=== PATIENT | female | born 1995 | race Hispanic/Latino ===

== ENCOUNTER 2024-08-11 19:26 | Inpatient (IN) | payer SELFPAY ==
[~2024-08-11] VITALS: Ht 154.9 cm; Wt 107.0 kg
[2024-08-11 19:43] LABS: ADD UA MICROSCOPIC YES; APPEARANCE,URINE CLOUDY (CLEAR); BILIRUBIN,URINE 0.5 mg/dL (NEGATIVE); COLOR,URINE YELLOW (YELLOW); GLUCOSE, URINE (UA) NEGATIVE (NEGATIVE); KETONES,URINE 60 mg/dL (NEGATIVE); LEUKOCYTE ESTERASE ,URINE 500 Leu/uL (NEGATIVE); NITRATE,URINE NEGATIVE (NEGATIVE); OCCULT BLOOD,URINE NEGATIVE (NEGATIVE); PROTEIN,URINE 20 mg/dL (NEGATIVE)
[2024-08-11 19:47] LABS: BACTERIA,URINE RARE /HPF (None Seen); MUCUS,URINE FEW LPF (None Seen); SQUAMOUS EPITHELIAL CELL,UR FEW /HPF (0-2); YEAST,URINE BUDDING RARE /HPF (None Seen)
--- NOTE | 2024-08-11 20:14 | HMCIMG ---
US ABDOMINAL RUQ\E\LTD HISTORY: No additional history given. COMPARISON: None TECHNIQUE: Right upper quadrant abdominal ultrasound study was performed. FINDINGS: Abdominal aorta and inferior vena cava are unremarkable. The visualized portion of the pancreas is within normal limits. Liver measures 14.2 cm. Liver is echogenic consistent with liver parenchymal disease. Gallstones are seen in the gallbladder Common duct measures 5 mm. No evidence of gallbladder wall thickening is seen. Right kidney measures 9.7 x 4.1 x 5 cm. No hydronephrosis is seen of the right kidney. IMPRESSION: 1. Gallstones in the gallbladder. No ductal dilatation is seen. 2. No hydronephrosis is seen.
--- NOTE | 2024-08-11 20:28 | ERN ---
ED Note History of Present Illness Stated Complaint: C/O ABD PAIN W/N X V ONSET 1300 TODAY Chief Complaint: Abdominal Pain Time Seen by MD: 19:31 Time Seen by Midlevel: 19:33 Dictation: 28-year-old female with no past medical history coming in complaining of epigastric pain that radiates to her back started at 1:00 a.m.. Patient states she ate meat and potatoes and pain started afterwards. Patient also states she has not nausea and vomiting has had two episodes of emesis and nonbloody. LMP is 07/16/2024. Allergies: Coded Allergies: No Known Allergies (Unverified Allergy, Unknown, 08/11/24) Past Medical History Past Medical History: No Pertinent History Surgical History: None LMP: Jul 16, 2024 Review of System Dictation Constitutional: Negative for fever,chills, and weight loss Eyes: Negative for injury, pain,redness, and discharge ENT: Negative for injury,pain or swelling Cardiovascular: Negative for chest pain, palpitations, and edema Respiratory: Negative for shortness of breath, cough, and wheezing, Abdomen/GI: Complaining of epigastric pain, nausea, vomiting, no diarrhea, and no constipation Back: Negative for injury and pain : Negative for injury, bleeding and discharge MS/Extremity: Negative for injury and deformity Skin: Negative for rash, and discoloration Neuro: Negative for headache, weakness, numbness, tingling, and seizure Psych: Negative for suicide ideation, homicidal ideation, and hallucinations Review of Systems: was completed Initial Vital Sign VS Vital Signs Date Time Temp Pulse Resp B/P (MAP) Pulse Ox O2 Delivery O2 Flow Rate FiO2 08/11/24 19:31 97.9 61 20 128/74 100 Room Air Physical Exam Dictation General: awake, alert, NAD Head/Face: Normocephalic, atraumatic Eyes: PERRL, EOMI, vision at baseline ENT: oral cavity clear, TMs clear, no signs of infection Neck: Trachea midline, supple, no nuchal rigidity Cardiovascular: RRR, normal S1/S2, No MRGs, no JVD Respiratory: CTAB, no respiratory distress, No rales or wheezes Abdomen: Soft, right upper quadrant tenderness on palpation, non-distended, norm al bowel sounds, no guarding or rebound. Skin: Warm, dry, normal turgor, no rash MS/Extremity: Pulses equal, no cyanosis, neurovascular intact, FROM Neuro: COAx4, GCS 15, strength 5/5, CN 2-12 intact, normal cerebellar exam, normal gait, Psych: Normal behavior, mood, and affect normal Results (Laboratory/Radiology) Laboratory/Radiology Laboratory Tests Test 08/11/24 19:33 08/11/24 20:24 Urine Color YELLOW (YELLOW) Urine Appearance CLOUDY (CLEAR) H Urine pH 6.0 (5.0-8.0) Urine Specific [place] 1.024 (1.001-1.031) Urine Protein 20 mg/dL (NEGATIVE) H Urine Glucose (UA) NEGATIVE mg/dL (NEGATIVE) Urine Ketones 60 mg/dL (NEGATIVE) H Urine Occult Blood NEGATIVE (NEGATIVE) Urine Nitrate NEGATIVE (NEGATIVE) Urine Bilirubin 0.5 mg/dL (NEGATIVE) H Urine Urobilinogen 4.0 mg/dL (0.2-1.0) H Urine Leukocyte Esterase 500 Francisco/uL (NEGATIVE) H Urine RBC 11-25 /HPF (0-1) H Urine WBC 11-25 /HPF (0-1) H Urine Squamous Epithelial Cells FEW /HPF (0-2) Urine Bacteria RARE /HPF (None Seen) Urine Yeast RARE /HPF (None Seen) White Blood Count 15.2 K/uL (4.8-10.8) H Red Blood Count 4.72 MIL/uL (4.00-5.50) Hemoglobin 13.4 g/dL (12.0-16.0) Hematocrit 41.3 % (36-48) Mean Corpuscular Volume 87.5 fL (79-99) Mean Corpuscular Hemoglobin 28.4 pg (27.0-33.0) Mean Corpuscular Hemoglobin Concent 32.4 g/dL (32.0-36.0) Red Cell Distribution Width 13.5 % (11.0-15.5) Platelet Count 313 K/uL (130-400) Mean Platelet Volume 10.3 fL (7.5-10.5) Immature Granulocyte % (Auto) 0.5 % (0-1) Neutrophils (%) (Auto) 90.1 % (40.0-77.0) H Lymphocytes (%) (Auto) 6.3 % (21.0-51.0) L Monocytes (%) (Auto) 2.9 % (3.0-13.0) L Eosinophils (%) (Auto) 0.0 % (0.0-8.0) Basophils (%) (Auto) 0.2 % (0.0-5.0) Neutrophils # (Auto) 13.7 K/uL (1.8-7.7) H Lymphocytes # (Auto) 1.0 K/uL (1.0-4.8) Monocytes # (Auto) 0.4 K/uL (0.1-1.0) Eosinophils # (Auto) 0.00 K/uL (0.00-0.70) Basophils # (Auto) 0.03 K/uL (0.00-0.20) Absolute Immature Granulocyte (auto 0.07 K/uL (0-1) Nucleated Red Blood Cells 0.0 % (0.0-0.19) White Cell Morphology Comment See comments Sodium Level 136 mmol/L (136-145) Potassium Level 4.1 mmol/L (3.5-5.1) Chloride Level 100 mmol/L (101-111) L Carbon Dioxide Level 26 mmol/L (21-32) Blood Urea Nitrogen 14 mg/dL (7-18) Creatinine 0.7 mg/dL (0.5-1.0) Glomerular Filtration Rate Calc 121 mL/min (>90) Random Glucose 145 mg/dL (70-105) H Total Calcium 9.2 mg/dL (8.5-10.1) Total Bilirubin 2.0 mg/dL (0.2-1.0) H Direct Bilirubin 1.6 mg/dL (0.0-0.3) H Aspartate Amino Transf (AST/SGOT) 261 U/L (10-37) H Alanine Aminotransferase (ALT/SGPT) 314 U/L (12-78) H Alkaline Phosphatase 400 U/L (50-136) H Total Protein 7.8 g/dL (6.0-8.3) Albumin 4.0 g/dL (3.5-5.0) Lipase 11948 U/L (16-77) *H Human Chorionic Gonadotropin, Quant 0 mIU/mL (0-5) Labs Reviewed?: Yes Ultrasound Comment: [place] [address] [place] [id number] IMAGING REPORT Signed PATIENT: SENTHIL SIN MR#: [id number] : 1995 SEX: F AGE: 28 LOCATION: [facility] ORDER 35 STATUS: REG ER REPORT#: [id number] SERVICE 32 REASON: RUQ pain ORDERING PHYSICIAN: HENRY WING NP PROCEDURE: ABDRUQLTD - US ABDOMINAL RUQ\LTD US ABDOMINAL RUQ\E\LTD HISTORY: No additional history given. COMPARISON: None TECHNIQUE: Right upper quadrant abdominal ultrasound study was performed. FINDINGS: Abdominal aorta and inferior vena cava are unremarkable. The visualized portion of the pancreas is within normal limits. Liver measures 14.2 cm. Liver is echogenic consistent with liver parenchymal disease. Gallstones are seen in the gallbladder Common duct measures 5 mm. No evidence of gallbladder wall thickening is seen. Right kidney measures 9.7 x 4.1 x 5 cm. No hydronephrosis is seen of the right kidney. IMPRESSION: 1. Gallstones in the gallbladder. No ductal dilatation is seen. 2. No hydronephrosis is seen. DICTATED BY: ADALBERTO DOBSON MD DATE: 08/11/242008 ELECTRONICALLY SIGNED BY: ADALBERTO DOBSON MD DATE: 08/11/242013 ED Course ED Course Orders Procedure Category Date Status Time Cbc With Differential LAB 08/11/24 Complete 19:33 Basic Metabolic Panel LAB 08/11/24 Complete 19:33 Lipase LAB 08/11/24 Complete 19:33 Hepatic Function Panel LAB 08/11/24 Complete 19:33 Hcg,Quantitative LAB 08/11/24 Complete 19:33 Urinalysis Profile LAB 08/11/24 Complete 19:33 Us Abdominal Ruq\Ltd US 08/11/24 Resulted 19:33 0.9%Nacl 1000ml (Ns PHA 08/11/24 Complete 1000ml) 19:33 Ondansetron 4mg Inj PHA 08/11/24 Complete (Zofran 4mg Inj) 20:00 Famotidine 20mg Vial PHA 08/11/24 Complete (Pepcid 20mg Vial) 20:00 Morphine 2mg Syg PHA 08/11/24 Complete (Morphine 2mg Syg) 20:00 Culture Urine MIGUEL 08/11/24 In Process 19:44 Ceftriaxone 1g Vial PHA 08/11/24 Complete (Rocephine 1g Inj) 20:25 General Surgery CONPHYSVC 08/11/24 Transmitted Consult 21:17 Admit Orders ADM 08/11/24 Transmitted 21:43 Current Medications Medications (Trade) Dose Ordered Sig/Joshua Route PRN Reason Start Time Stop Time Status Last Admin Dose Admin Ceftriaxone Sodium (ROCEphine 1G INJ) 1 gm ONCE STAT IVPB 08/11/24 20:25 08/11/24 20:28 DC 08/11/24 21:37 Famotidine (Pepcid 20mg Vial) 20 mg ONCE ONCE IV 08/11/24 20:00 08/11/24 20:01 DC 08/11/24 21:39 Morphine Sulfate (morPHINE 2MG SYG) 2 mg ONCE ONCE IVP 08/11/24 20:00 08/11/24 20:01 DC 08/11/24 21:38 Ondansetron HCl (zoFRAN 4MG INJ) 4 mg ONCE ONCE IVP 08/11/24 20:00 08/11/24 20:01 DC 08/11/24 21:37 Sodium Chloride 1,000 ml @ 1,000 mls/hr Q1H STAT IV 08/11/24 19:33 08/11/24 20:32 DC 08/11/24 21:37 Vital Signs Date Time Temp Pulse Resp B/P (MAP) Pulse Ox O2 Delivery O2 Flow Rate FiO2 08/11/24 19:31 97.9 61 20 128/74 100 Room Air Medical Decision Making MDM MDM: 28-year-old female with no past medical history coming in complaining of epigastric pain that radiates to her back started at 1:00 a.m.. Patient states she ate meat and potatoes and pain started afterwards. Patient also states she has not nausea and vomiting has had two episodes of emesis and nonbloody. LMP is 07/16/2024. CBC shows a leukocytosis, no anemia, no thrombocytopenia. Chemistry shows transaminitis with a elevated T bili. Normal lipase. Ultrasound shows gallbladder stones but no gallbladder wall thickening. Patient will be admitted for biliary colic, transaminitis, urinary tract infection, intractable abdominal pain. Spoke to Adrienne LINER HELPER for hospitalist. Okay to admit patient and put a routine consult for General surgery. Differential diagnosis: Gastritis, gastroenteritis, pancreatitis, cholecystitis Rationale: Tests considered and ordered secondary to shared decision making include: Previous outside records reviewed: Old ER visits. Risk of complication and/or morbidity or mortality of patient management: None Medications-Per medication reconciliation Need for hospitalization: Patient does not meet criteria for hospitalization. Need for emergency major/minor surgery: No There are no social concerns with this patient. Prescription drug management Prescriptions will include symptomatic care Patient's prior external medical records from other ER visits were reviewed by me as indicated. Prior testing and results from previous visits were reviewed. Prior tests were taken into account with medical decision making and resource utilization, independent historian/historians were used to obtain complete medical history. I independently interpreted the test that were performed, results were reviewed by me and considered findings on radiology if ordered. Medical management and examination interpretation discussions were had by me with other qualified healthcare professionals as indicated for the patient's care. DX & DISP Disposition: Inpatient Decision to Admit Date: Aug 11, 2024 Decision to Admit Time: 21:45 Departure Impression: Primary Impression: Urinary tract infection Additional Impressions: Cholelithiasis, Biliary colic, Leukocytosis, Transaminitis, Pancreatitis Condition: Stable Referrals: SELF,REFERRAL (PCP) I have reviewed the case, and I agree with, Diagnosis and Plan I PERFORMED A SUBSTANTIVE PORTION OF THE VISIT. I HAVE REVIEWED AND PERSONALLY MADE AND APPROVE THE MANAGEMENT PLAN THAT IS DOCUMENTED IN THE NOTE BY MYSELF OR THE AP P. I ACKNOWLEDGE FULL RESPONSIBILITY FOR THE PATIENT'S MANAGEMENT PLAN. HENRY WING NP Aug 11, 2024 20:28
[2024-08-11 20:40] LABS: BASOPHILS # (AUTO) 0.03 K/uL (0.00-0.20); BASOPHILS % (AUTO) 0.2 % (0.0-5.0); HEMATOCRIT 41.3 % (36-48); IMMATURE GRANULOCYTE ABSOLUTE 0.07 K/uL (0-1); LYMPHOCYTES % (AUTO) 6.3 % (21.0-51.0); MEAN CORPUSCULAR HEMOGLOBIN 28.4 pg (27.0-33.0); MEAN CORPUSCULAR HGB CONC 32.4 g/dL (32.0-36.0); MEAN CORPUSCULAR VOLUME 87.5 fL (79-99); MONOCYTES # (AUTO) 0.4 K/uL (0.1-1.0); MONOCYTES % (AUTO) 2.9 % (3.0-13.0); NEUTROPHILS # (AUTO) 13.7 K/uL (1.8-7.7); NEUTROPHILS % (AUTO) 90.1 % (40.0-77.0); PLATELET COUNT (AUTO) 313 K/uL (130-400); RED BLOOD CELL COUNT(AUTO) 4.72 MIL/uL (4.00-5.50); RED CELL DISTRIBUTION WIDTH 13.5 % (11.0-15.5); WHITE BLOOD COUNT (AUTO) 15.2 K/uL (4.8-10.8)
[2024-08-11 20:57] LABS: CREATININE 0.7 mg/dL (0.5-1.0); POTASSIUM 4.1 mmol/L (3.5-5.1)
[2024-08-11 21:08] LABS: BILIRUBIN,DIRECT 1.6 mg/dL (0.0-0.3); TOTAL PROTEIN, SERUM 7.8 g/dL (6.0-8.3)
[2024-08-11] MEDS: 0.9%NACL 1000ML 1,000 ML IV STA (21:37)
[2024-08-11] MEDS: cefTRIAXone 1G VIAL IVPB STA (21:37)
[2024-08-11] MEDS: ondanSETRON 4MG INJ IVP ONE (21:37)
[2024-08-11] MEDS: morPHINE 2 MG SYG IVP ONE (21:38)
[2024-08-11] MEDS: FAMOTIDINE 20MG VIAL IV ONE (21:39)
--- NOTE | 2024-08-11 22:28 | HP ---
[facility] HISTORY [facility] PHYSICAL Date of Service: Aug 11, 2024 Time of Service: 22:28 PCP: Self-referral HISTORY OF PRESENT ILLNESS: This is a 28-year-old female with no past medical and surgical history who comes into the ED for complaints of epigastric pain which radiates to her back which started around 1:00 p.m. today associated with nausea and vomiting x5 episodes. Patient states he had meat and potatoes around 10:30 a.m. today.Patient described pain as sharp so she decided to come to the Ed for evaluation. P atient states her last bowel movement is around 8:00 a.m. a.m. today eight was normal. Seen and examined patient in the ER awake alert and coherent appears comfortable patient reports she feels much better luminal pain 2/10 pain level at this time. Patient denies fever, chills, cough, chest pain, palpitation, shortness for breath and diarrhea. Vital signs temperature 97.9, heart rate 61, blood pressure 128/74 saturation 100% on room air. Labs: WBC 15 with negative left shift of neutrophils 90, hemoglobin 13, hematocrit 41 platelet count 313. Chloride 100, glucose 145, total bilirubin 2,Direct bilirubin 1.6, AST 261, ALT 314, alkaline phosphatase 400. Lipase 24114, triglyceride 49 . Urinalysis consistent with urinary tract infection. Abdominal ultrasound result revealed gallstone in the gallbladder. No ductal dilatation is seen. No hydronephrosis is seen. While in the ER patient received 1 L NS bolus, Zofran 4 mg IV, famotidine 20 mg IV, morphine 2 mg IV and Rocephin 1 g IV. We will admit patient for further medical management. REVIEW OF SYSTEMS CONSTITUTIONAL: Denies fevers, chills, or night sweats. No unintentional weight loss reported. NEUROLOGICAL: Denies headache, amaurosis fugax, motor weakness, sensory deficit, vertigo/spinning sensation, gait abnormalities, or tremors. ENT: No hearing loss, otalgia, otorrhea, rhinitis, rhinorrhea, hoarseness, or sore throat. CARDIOVASCULAR: Denies any exertional angina, dyspnea on exertion, orthopnea, paroxysmal nocturnal dyspnea, palpitations, life-threatening arrhythmias, claudication. PULMONARY: Denies any shortness of breath, cough, phlegm/sputum, hemoptysis, pleuritic chest pain. SLEEP: Denies morning headaches, daytime somnolence or napping. Denies difficu lty falling asleep, staying asleep, waking from sleep. Denies knowledge of snoring. GASTROINTESTINAL: Epigastric pain, nausea and vomiting Denies any type of dysphagia to either liquids or solids. Denies pyrosis, early satiety, diarrhea, constipation, or changes in stool consistency or caliber. Denies coffee-ground emesis, hematemesis, hematochezia, or melanotic stools. GENITOURINARY: Denies frequency, urgency, nocturia, hematuria or incontinence (Storage/Irritative symptoms.) Low urinary stream, straining to void, urinary intermittency or hesitancy, splitting of the voiding stream, terminal dribbling. ENDOCRINOLOGIC: Denies polyuria, polydipsia, polyphagia or heat/cold intolerances. HEMATOLOGIC: Denies thrombophilia/previous clots, or coagulopathy/bleeding disorders. ONCOLOGIC: Denies personal history of malignancy. DERMATOLOGIC: Denies rashes or pruritus. PSYCHIATRIC: Denies any suicidal or homicidal ideation. Denies hallucinations. PAST MEDICAL HISTORY: [ Patient denies ] PAST SURGICAL HISTORY: [ Patient denies ] PAST SOCIAL HISTORY: [ Patient lives with parents. Patient denies alcohol tobacco and recreational drug use ] FAMILY HISTORY: [ Noncontributory ] Coded Allergies: No Known Allergies (Unverified Allergy, Unknown, 08/11/24) PHYSICAL EXAM GENERAL APPEARANCE: The patient is awake, alert, and oriented, in no acute cardiopulmonary distress. NEUROLOGICAL: Cranial nerves II-XII grossly intact. Motor is 5/5 in bilateral upper and lower extremities proximal to distal. No sensory deficits. HEENT: Face is symmetric. Pupils are equal and reactive. Extraocular movements are intact. NECK: Supple. No JVD. No thyromegaly. No submental, submandibular, pre- /postauricular, occipital or supraclavicular lymphadenopathy. CHEST: Normal chest expansion. No Telemetry. LUNGS: Absence of any rales, rhonchi or any wheezing. CARDIOVASCULAR: Regular. S1 and S2 normal. No appreciable rubs, murmurs or gallops. ABDOMEN: Soft, nontender, and nondistended. There is no rebound, voluntary guarding, or rigidity. : Deferred. No Parker. EXTREMITIES: Non-edematous and not cyanotic. No clubbing. Good capillary refill. SKIN: No skin breakdown. Vital Sign (Last 24 Hours) 08/11/24 19:31 Temp 97.9 Pulse 61 Resp 20 B/P (MAP) 128/74 Pulse Ox 100 O2 Delivery Room Air LABS: Laboratory: Test 08/11/24 20:24 08/11/24 19:33 Range/Units White Blood Count 15.2 H 4.8-10.8 K/uL Red Blood Count 4.72 4.00-5.50 MIL/uL Hemoglobin 13.4 12.0-16.0 g/dL Hematocrit 41.3 36-48 % Mean Corpuscular Volume 87.5 79-99 fL Mean Corpuscular Hemoglobin 28.4 27.0-33.0 pg Mean Corpuscular Hemoglobin Concent 32.4 32.0-36.0 g/dL Red Cell Distribution Width 13.5 11.0-15.5 % Platelet Count 313 130-400 K/uL Mean Platelet Volume 10.3 7.5-10.5 fL Immature Granulocyte % (Auto) 0.5 0-1 % Neutrophils (%) (Auto) 90.1 H 40.0-77.0 % Lymphocytes (%) (Auto) 6.3 L 21.0-51.0 % Monocytes (%) (Auto) 2.9 L 3.0-13.0 % Eosinophils (%) (Auto) 0.0 0.0-8.0 % Basophils (%) (Auto) 0.2 0.0-5.0 % Neutrophils # (Auto) 13.7 H 1.8-7.7 K/uL Lymphocytes # (Auto) 1.0 1.0-4.8 K/uL Monocytes # (Auto) 0.4 0.1-1.0 K/uL Eosinophils # (Auto) 0.00 0.00-0.70 K/uL Basophils # (Auto) 0.03 0.00-0.20 K/uL Absolute Immature Granulocyte (auto 0.07 0-1 K/uL Nucleated Red Blood Cells 0.0 0.0-0.19 % White Cell Morphology Comment See comments Sodium Level 136 136-145 mmol/L Potassium Level 4.1 3.5-5.1 mmol/L Chloride Level 100 L 101-111 mmol/L Carbon Dioxide Level 26 21-32 mmol/L Blood Urea Nitrogen 14 7-18 mg/dL Creatinine 0.7 0.5-1.0 mg/dL Glomerular Filtration Rate Calc 121 >90 mL/min Random Glucose 145 H 70-105 mg/dL Total Calcium 9.2 8.5-10.1 mg/dL Total Bilirubin 2.0 H 0.2-1.0 mg/dL Direct Bilirubin 1.6 H 0.0-0.3 mg/dL Aspartate Amino Transf (AST/SGOT) 261 H 10-37 U/L Alanine Aminotransferase (ALT/SGPT) 314 H 12-78 U/L Alkaline Phosphatase 400 H 50-136 U/L Total Protein 7.8 6.0-8.3 g/dL Albumin 4.0 3.5-5.0 g/dL Lipase 85181 *H 16-77 U/L Human Chorionic Gonadotropin, Quant 0 0-5 mIU/mL Urine Color YELLOW YELLOW Urine Appearance CLOUDY H CLEAR Urine pH 6.0 5.0-8.0 Urine Specific [place] 1.024 1.001-1.031 Urine Protein 20 H NEGATIVE mg/dL Urine Glucose (UA) NEGATIVE NEGATIVE mg/dL Urine Ketones 60 H NEGATIVE mg/dL Urine Occult Blood NEGATIVE NEGATIVE Urine Nitrate NEGATIVE NEGATIVE Urine Bilirubin 0.5 H NEGATIVE mg/dL Urine Urobilinogen 4.0 H 0.2-1.0 mg/dL Urine Leukocyte Esterase 500 H NEGATIVE [place]/uL Urine RBC 11-25 H 0-1 /HPF Urine WBC 11-25 H 0-1 /HPF Urine Squamous Epithelial Cells FEW 0-2 /HPF Urine Bacteria RARE None Seen /HPF Urine Yeast RARE None Seen /HPF Current Medications Medications (Trade) Dose Ordered Sig/Joshua Route PRN Reason Start Time Stop Time Status Last Admin Dose Admin Ceftriaxone Sodium (ROCEphine 1G INJ) 1 gm ONCE STAT IVPB 08/11/24 20:25 08/11/24 20:28 DC 08/11/24 21:37 1 GM Sodium Chloride 1,000 ml @ 1,000 mls/hr Q1H STAT IV 08/11/24 19:33 08/11/24 20:32 DC 08/11/24 21:37 1,000 MLS/HR DIAGNOSTICS / RADIOLOGY: [ ] ASSESSMENT: Acute pancreatitis POA Transaminitis POA Acute urinary tract infection POA Acute leukocytosis POA Biliary colic POA Cholelithiasis POA Morbid obesity POA PLAN: We will admit patient in medical surgical floor We will keep patient nothing by mouth We will start NS @ 100 ml / hr and re evaluate We will start patient on Rocephin 1 g IV b.i.d. for empiric coverage We will start on Protonix 40 mg IV daily for GI prophylaxis We will replace electrolytes as needed per protocol We will add prn medication for fever,pain,cough , nausea and vomiting We will request labs in am We will seek general surgery consultation Further orders to follow depending on above results Case discussed with attending physician and came up with above treatment and plan of care. ADVANCED CARE PLANNING 1. Which of the following were discussed? Hospice Care - No Therapeutic options - Yes Advance Directives - No Other discussions - 2. Discussed with who? Patient 3. Voluntary nature of this service was explained to the patient? Yes 4. Amount of time spent - _22 5. Reviewed by Physician? (if this service was performed by NPP) Yes Patient seen and examined by me. Agree with note by AIRBRUSH ARTIST PHOTOGRAPHY SEE ADDITIONAL ORDERS PER CHART DISCUSSED WITH NURSING STAFF EMILY DICKEY PROBATION WORKER Aug 11, 2024 22:28
[2024-08-11] MEDS ORDERED: ondanSETRON 4MG INJ IV PRN (23:00)
[2024-08-11] MEDS ORDERED: morPHINE 2 MG SYG IVP PRN (23:00)
--- NOTE | 2024-08-11 23:34 | NUR ---
[place] [facility] [place]
[2024-08-11] MEDS: 0.9%NACL 1000ML 1,000 ML IV SCH (23:56)
[2024-08-12 00:05] VITALS: BP 119/62; PULSE 80; RESP 18; TEMP 98.3
--- NOTE | 2024-08-12 00:17 | NUR ---
REPORT GIVEN TO NURSE KING.
[2024-08-12 00:30] VITALS: BP 143/72; PULSE 76; RESP 16; TEMP 97.6
[2024-08-12 04:00] VITALS: BP 126/71; PULSE 85; RESP 17; TEMP 98.3
[2024-08-12 05:39] LABS: BASOPHILS # (AUTO) 0.02 K/uL (0.00-0.20); BASOPHILS % (AUTO) 0.2 % (0.0-5.0); EOSINOPHILS # (AUTO) 0.09 K/uL (0.00-0.70); EOSINOPHILS % (AUTO) 0.8 % (0.0-8.0); HEMATOCRIT 35.5 % (36-48); IMMATURE GRANULOCYTE ABSOLUTE 0.05 K/uL (0-1); LYMPHOCYTES % (AUTO) 17.3 % (21.0-51.0); MEAN CORPUSCULAR HEMOGLOBIN 28.3 pg (27.0-33.0); MEAN CORPUSCULAR HGB CONC 32.4 g/dL (32.0-36.0); MEAN CORPUSCULAR VOLUME 87.4 fL (79-99); MONOCYTES # (AUTO) 0.7 K/uL (0.1-1.0); MONOCYTES % (AUTO) 5.7 % (3.0-13.0); NEUTROPHILS # (AUTO) 8.8 K/uL (1.8-7.7); NEUTROPHILS % (AUTO) 75.6 % (40.0-77.0); PLATELET COUNT (AUTO) 283 K/uL (130-400); RED BLOOD CELL COUNT(AUTO) 4.06 MIL/uL (4.00-5.50); RED CELL DISTRIBUTION WIDTH 13.7 % (11.0-15.5); WHITE BLOOD COUNT (AUTO) 11.7 K/uL (4.8-10.8)
[2024-08-12 05:56] LABS: HEMOGLOBIN A1C 5.4 % (4.0-6.0)
[2024-08-12 06:03] LABS: BILIRUBIN,DIRECT 0.3 mg/dL (0.0-0.3); BILIRUBIN,TOTAL 0.7 mg/dL (0.2-1.0); CREATININE 0.6 mg/dL (0.5-1.0); MAGNESIUM 1.9 mg/dL (1.80-2.40); POTASSIUM 3.8 mmol/L (3.5-5.1); TOTAL PROTEIN, SERUM 6.6 g/dL (6.0-8.3)
[2024-08-12] MEDS: cefTRIAXone 1G VIAL IVPB SCH (08:06)
[2024-08-12] MEDS: PANTOPrazole 40 MG/VIAL IVP SCH (08:06)
[2024-08-12 08:28] VITALS: O2SAT 99
[2024-08-12] MEDS ORDERED: cefTRIAXone 1G VIAL 1 GM in 0.9%NACL 50ML 50 ML IV SCH (09:00)
[2024-08-12 09:32] LABS: ERYTHROCYTE SEDIMENTATION RATE 25 MM/HR (0-20)
--- NOTE | 2024-08-12 10:15 | NUR ---
PATIENT TAKEN BY RADIOLOGY FOR PROCEDURE. ALERT AND ORIENTED X4. CONSENT SIGNED.
--- NOTE | 2024-08-12 11:06 | NUR ---
PATIENT RETURNED FROM [facility]. RECONNECTED TO IV FLUIDS.
[2024-08-12] MEDS: MAGNESIUM 2GM PREMIX 50ML 50 ML IV PRN (11:08)
--- NOTE | 2024-08-12 11:20 | NUR ---
[facility] CM MET WITH PT AND MOTHER THIS MORNING, INITIAL ASSESSMENT DONE. PATIENT IS INDEPENDENT PRIOR TO ADMISSION, LIVES AT HOME WITH HER PARENTS. DENIES ANY EQUIPMENT/SERVICES. FEELS SAFE TO GO BACK HOME, STILL DRIVE, PARENTS ABLE TO ASSIST WITH TRANSPORTATION AND NEEDS NECESSARY. PT IS A SELF PAY, CURRENTLY DOES NOT SEE A PCP PRIOR TO ADMISSION, GIVEN COMMUNITY RESOURCES AND LOW COST MED PLANS, NAN FOLLOWING PATIENT. DCP HOME ONCE STABLE. CM TO CONTINUE TO FOLLOW UP. Addendum: 08/12/24 at 1121 by ADIA KENDALL LVN CM Amended: Links added.
--- NOTE | 2024-08-12 11:56 | HMCIMG ---
MRCP(ABDWWO)CHOLANGIOPANCREATO HISTORY: Gallstone pancreatitis COMPARISON: None TECHNIQUE: MRI of the abdomen was performed utilizing multiple pulse sequences in axial, coronal and sagittal planes. Patient was given 20 cc of Clariscan through intravenous route. MRCP was obtained. FINDINGS: No pleural effusion is seen bilaterally. Liver measures 14 cm. Gallstones are seen in the gallbladder. Common duct is not dilated measuring 3 mm. Pancreas is prominent with pancreatic fat stranding suspicious for acute pancreatitis in the proper clinical setting. Lipase correlation may be helpful. No mass lesion or abnormal enhancement is seen. Both kidneys are seen without hydronephrosis. IMPRESSION: 1. Gallstones without ductal dilatation. Prominent pancreas with peripancreatic fat stranding suspicious for acute pancreatitis in the proper clinical setting. Common duct is not dilated. No MR evidence of common duct stone is seen.
--- NOTE | 2024-08-12 13:44 | PN ---
[facility] PROGRESS NOTE Date of Service: Aug 12, 2024 Time of Service: 13:37 SUBJECTIVE: 08/12 patient seen at bedside, no acute events overnight. She reports improvement in her symptoms, epigastric pain has improved significantly. Upon reviewing the imaging there does not appear to be any evidence of choledocholithiasis causing acute pancreatitis. Common bile duct was of normal size, MRCP was ordered this morning and did not show any evidence of retained stones in the common bile duct. There are stones noted in the gallbladder and there is peripancreatic stranding consistent with acute pancreatitis. Patient's triglycerides are normal, she denies any alcohol use and does not take any medications that would precipitate acute pancreatitis. We will continue with IV fluids, patient already stating she is hungry, we will start a clear liquid diet and advance as tolerated. General surgery recommendations pending, we will follow up. REVIEW OF SYSTEMS 12 point review of systems negative unless noted in HPI PHYSICAL EXAM GENERAL APPEARANCE: The patient is awake, alert, and oriented, in no acute cardiopulmonary distress. NEUROLOGICAL: Cranial nerves II-XII grossly intact. Motor is 5/5 in bilateral upper and lower extremities proximal to distal. No sensory deficits. HEENT: Face is symmetric. Pupils are equal and reactive. Extraocular movements are intact. NECK: Supple. No JVD. No thyromegaly. No submental, submandibular, pre- /postauricular, occipital or supraclavicular lymphadenopathy. CHEST: Normal chest expansion. No Telemetry. LUNGS: Absence of any rales, rhonchi or any wheezing. CARDIOVASCULAR: Regular. S1 and S2 normal. No appreciable rubs, murmurs or gallops. ABDOMEN: Soft, nontender, and nondistended. There is no rebound, voluntary guarding, or rigidity. : Deferred. No Parker. EXTREMITIES: Non-edematous and not cyanotic. No clubbing. Good capillary refill. SKIN: No skin breakdown. Vital Signs (last 8hr) Date Time Temp Pulse Resp B/P (MAP) Pulse Ox O2 Delivery O2 Flow Rate FiO2 08/12/24 08:28 99 Room Air* 0 21 LABS: Laboratory: Test 08/12/24 05:21 08/11/24 20:24 08/11/24 19:33 Range/Units White Blood Count 11.7 H 4.8-10.8 K/uL Red Blood Count 4.06 4.00-5.50 MIL/uL Hemoglobin 11.5 L 12.0-16.0 g/dL Hematocrit 35.5 L 36-48 % Mean Corpuscular Volume 87.4 79-99 fL Mean Corpuscular Hemoglobin 28.3 27.0-33.0 pg Mean Corpuscular Hemoglobin Concent 32.4 32.0-36.0 g/dL Red Cell Distribution Width 13.7 11.0-15.5 % Platelet Count 283 130-400 K/uL Mean Platelet Volume 10.3 7.5-10.5 fL Immature Granulocyte % (Auto) 0.4 0-1 % Neutrophils (%) (Auto) 75.6 40.0-77.0 % Lymphocytes (%) (Auto) 17.3 L 21.0-51.0 % Monocytes (%) (Auto) 5.7 3.0-13.0 % Eosinophils (%) (Auto) 0.8 0.0-8.0 % Basophils (%) (Auto) 0.2 0.0-5.0 % Neutrophils # (Auto) 8.8 H 1.8-7.7 K/uL Lymphocytes # (Auto) 2.0 1.0-4.8 K/uL Monocytes # (Auto) 0.7 0.1-1.0 K/uL Eosinophils # (Auto) 0.09 0.00-0.70 K/uL Basophils # (Auto) 0.02 0.00-0.20 K/uL Absolute Immature Granulocyte (auto 0.05 0-1 K/uL Nucleated Red Blood Cells 0.0 0.0-0.19 % Erythrocyte Sedimentation Rate 25 H 0-20 MM/HR Sodium Level 137 136-145 mmol/L Potassium Level 3.8 3.5-5.1 mmol/L Chloride Level 105 101-111 mmol/L Carbon Dioxide Level 25 21-32 mmol/L Blood Urea Nitrogen 12 7-18 mg/dL Creatinine 0.6 0.5-1.0 mg/dL Glomerular Filtration Rate Calc 126 >90 mL/min Random Glucose 99 70-105 mg/dL Hemoglobin A1c 5.4 4.0-6.0 % Estimated Average Glucose (eAG) 108 70-126 mg/dL Total Calcium 8.1 L 8.5-10.1 mg/dL Magnesium Level 1.90 1.80-2.40 mg/dL Total Bilirubin 0.7 # 0.2-1.0 mg/dL Direct Bilirubin 0.3 # 0.0-0.3 mg/dL Aspartate Amino Transf (AST/SGOT) 201 H 10-37 U/L Alanine Aminotransferase (ALT/SGPT) 282 H 12-78 U/L Alkaline Phosphatase 300 H 50-136 U/L Total Protein 6.6 6.0-8.3 g/dL Albumin 3.0 #L 3.5-5.0 g/dL Triglycerides Level 46 30-200 mg/dL Cholesterol Level 116 <200 mg/dL LDL Cholesterol 51 0-99 mg/dL HDL Cholesterol 58 35-85 mg/dL Amylase Level 1682 *H 25-115 U/L Lipase 3035 *H 16-77 U/L White Cell Morphology Comment See comments Human Chorionic Gonadotropin, Quant 0 0-5 mIU/mL Urine Color YELLOW YELLOW Urine Appearance CLOUDY H CLEAR Urine pH 6.0 5.0-8.0 Urine Specific [place] 1.024 1.001-1.031 Urine Protein 20 H NEGATIVE mg/dL Urine Glucose (UA) NEGATIVE NEGATIVE mg/dL Urine Ketones 60 H NEGATIVE mg/dL Urine Occult Blood NEGATIVE NEGATIVE Urine Nitrate NEGATIVE NEGATIVE Urine Bilirubin 0.5 H NEGATIVE mg/dL Urine Urobilinogen 4.0 H 0.2-1.0 mg/dL Urine Leukocyte Esterase 500 H NEGATIVE [place]/uL Urine RBC 11-25 H 0-1 /HPF Urine WBC 11-25 H 0-1 /HPF Urine Squamous Epithelial Cells FEW 0-2 /HPF Urine Bacteria RARE None Seen /HPF Urine Yeast RARE None Seen /HPF Current Medications Medications (Trade) Dose Ordered Sig/Joshua Route PRN Reason Start Time Stop Time Status Last Admin Dose Admin Ceftriaxone Sodium 1 gm/ Sodium Chloride 50 ml @ 100 mls/hr BID IV 08/12/24 09:00 08/11/24 23:12 DC Ceftriaxone Sodium (ROCEphine 1G INJ) 1 gm BID IVPB 08/12/24 09:00 08/22/24 08:59 08/12/24 08:06 1 GM Ceftriaxone Sodium (ROCEphine 1G INJ) 1 gm ONCE STAT IVPB 08/11/24 20:25 08/11/24 20:28 DC 08/11/24 21:37 1 GM Magnesium Sulfate 50 ml @ 0 mls/hr PROTOCOL PRN IV OTHER [SEE ORDER COMMENTS] 08/11/24 23:00 09/10/24 22:59 08/12/24 11:08 25 MLS/HR Morphine Sulfate (morPHINE 2MG SYG) 2 mg Q4H PRN IVP SEVERE PAIN (7-10) 08/11/24 23:00 08/18/24 22:59 Ondansetron HCl (zoFRAN 4MG INJ) 4 mg Q6H PRN IV NAUSEA/VOMITING 08/11/24 23:00 09/10/24 22:59 Pantoprazole Sodium (PROTonix 40MG INJ) 40 mg DAILY IVP 08/12/24 09:00 09/11/24 08:59 08/12/24 08:06 40 MG Potassium Chloride 100 ml @ 50 mls/hr AD PRN IV POTASSIUM PROTOCOL 08/11/24 23:00 09/10/24 22:59 Sodium Chloride 1,000 ml @ 175 mls/hr Q5H43M IV 08/11/24 23:00 09/10/24 22:59 08/11/24 23:56 100 MLS/HR Sodium Chloride 1,000 ml @ 1,000 mls/hr Q1H STAT IV 08/11/24 19:33 08/11/24 20:32 DC 08/11/24 21:37 1,000 MLS/HR DIAGNOSTICS / RADIOLOGY: [ ] ASSESSMENT: Acute pancreatitis POA Transaminitis POA Acute urinary tract infection POA Acute leukocytosis POA Biliary colic POA Cholelithiasis POA Morbid obesity POA PLAN: Continue med/surg Start clear liquid diet, advance as tolerated Increase NS to 175 cc/hr Continue pain management Chest xray tomorrow am Discontinue antibiotics, not indicated at this time Continue Protonix 40 mg IV daily for GI prophylaxis General surgery consulted, appreciate recommendations Further orders to follow depending on above results Case discussed with attending physician and came up with above treatment and plan of care. ABRAM SAUCEDO MD Aug 12, 2024 13:44
--- NOTE | 2024-08-12 15:36 | CONS ---
CONSULT NOTE: Consulting physician: Dr Man Consulting service: General surgery Reason for consultation: Gallstone pancreatitis History of present illness: This 28-year-old female with no significant medical history has been consulted to surgery after presenting to the hospital with the abdominal pain in the epigastric region radiating to her back that began at 1:00 p.m.. Patient with a episodes of emesis noted. Patient reports fatty meal before presentation to the hospital. On presentation patient [place] [id number]. Lipase now less than 4000. Patient's abdominal pain has resolved patient currently NPO. Imaging performed due to concerns of elevated LFTs ruling out choledocholithiasis on MRCP. Patient on IV fluids and NPO. Patient's mother at bedside Medical history: None reported Surgical history: None reported Review of systems: General: No Fever, No Chills, No Night Sweats, No Fatigue, No Malaise, No Appetite, No Other HEENT: No Head Aches, No Visual Changes, No Eye Pain, No Ear Pain, No Dysphasia, No Sinus Congestion, No Post Nasal Drip, No Sore Throat, No Other Pulmonary: No Dyspnea, No Cough, No Pleuritic Chest Pain, No Other Cardiovascular: No: Chest Pain, Palpitations, Orthopnea, Paroxysmal No Dyspnea, Edema, Lt Headedness, Other Gastrointestinal: No: Nausea, Vomiting, Diarrhea, Constipation, Melena, Hematochezia, Other Genitourinary: No Dysuria, No Frequency, No Incontinence, No Hematuria, No Retention, No Other Musculoskeletal: No: other, neck pain, shoulder pain, arm pain, back pain, hand pain, leg pain, foot pain Skin: No Urticaria, No Rash, No Other Neurological: No: Weakness, Numbness, Incoordination, Change in speech, Confusion, Seizures, Other Physical exam: General: Awake alert and oriented Heart: Regular rate and rhythm} Lungs: Clear to auscultation no distress Abdomen: [Soft, nontender, nondistended resolving abdominal pain Assessment: This is a 28-year-old female with concerns of possible gallstone pancreatitis Plan: At this point in time we will trend lipase Patient to remain NPO Patient will likely need cholecystectomy this hospitalization once pancreatitis has resolved Surgical team to follow patient closely Nursing to report any further acute events Continue with current pain management RISSA KENDALL Jr. Aug 12, 2024 15:36
[2024-08-12] MEDS ORDERED: GADOTERATE MEGLUMINE 10 MMOL/20 ML VIAL IV ONE (16:08)
[2024-08-12] MEDS: PoTASSium chloRIDE 20MEQ/100ML 100 ML IV PRN (17:22)
[2024-08-12 20:00] VITALS: BP 106/56; PULSE 87; RESP 17; TEMP 98.4; O2SAT 97
[2024-08-13] VITALS (8 sets, daily range): BP systolic 124–155; BP diastolic 58–75; PULSE 71–91; RESP 17–20; TEMP 98.1–98.4; O2SAT 98–99
--- NOTE | 2024-08-13 09:43 | HMCIMG ---
Exam Type: CHEST 1VW Clinical Information: Evaluate for infiltrates Comparison: None Findings: The lungs are clear of infiltrates. The heart is normal in size. The bony and soft tissue structures of the chest are unremarkable. Impression: Clear lungs.
--- NOTE | 2024-08-13 10:04 | PN ---
This is a 21-year-old female with concerns for gallstone pancreatitis Interval history This 21-year-old female seen in her room resting comfortably Patient remains NPO Patient continues With out the abdominal pain Lipase has trended down to 462 From surgical standpoint we will continue to trend lipase Patient to be allowed clear liquid diet today Surgical intervention likely necessary this hospitalization Doctor Janice to be updated in patient's status and surgical team to follow patient closely. Thank you Vitals/Labs Vital Signs Date Time Temp Pulse Resp B/P (MAP) Pulse Ox O2 Delivery O2 Flow Rate FiO2 08/13/24 08:18 98.1 79 18 155/75 99 Room Air 08/12/24 20:00 0 21 Medications Current Medications Sodium Chloride 1,000 ml @ 1,000 mls/hr Q1H STAT IV Last administered on 08/11/24at 21:37; Start 08/11/24 at 19:33; Stop 08/11/24 at 20:32; Status DC Ondansetron HCl 4 mg ONCE ONCE IVP Last administered on 08/11/24at 21:37; Start 08/11/24 at 20:00; Stop 08/11/24 at 20:01; Status DC Famotidine 20 mg ONCE ONCE IV Last administered on 08/11/24at 21:39; Start 08/11/24 at 20:00; Stop 08/11/24 at 20:01; Status DC Morphine Sulfate 2 mg ONCE ONCE IVP Last administered on 08/11/24at 21:38; Start 08/11/24 at 20:00; Stop 08/11/24 at 20:01; Status DC Ceftriaxone Sodium 1 gm ONCE STAT IVPB Last administered on 08/11/24at 21:37; Start 08/11/24 at 20:25; Stop 08/11/24 at 20:28; Status DC Ondansetron HCl 4 mg Q6H PRN IV; Start 08/11/24 at 23:00; Stop 09/10/24 at 22:59 Sodium Chloride 1,000 ml @ 175 mls/hr Q5H43M IV Last administered on 08/12/24at 17:22; Start 08/11/24 at 23:00; Stop 09/10/24 at 22:59 Ceftriaxone Sodium 1 gm/ Sodium Chloride 50 ml @ 100 mls/hr BID IV; Start 08/12/24 at 09:00; Stop 08/11/24 at 23:12; Status DC Potassium Chloride 100 ml @ 50 mls/hr AD PRN IV Last administered on 08/12/24at 17:22; Start 08/11/24 at 23:00; Stop 09/10/24 at 22:59 Magnesium Sulfate 50 ml @ 0 mls/hr PROTOCOL PRN IV Last administered on 08/12/24at 11:08; Start 08/11/24 at 23:00; Stop 09/10/24 at 22:59 Morphine Sulfate 2 mg Q4H PRN IVP; Start 08/11/24 at 23:00; Stop 08/18/24 at 22:59 Pantoprazole Sodium 40 mg DAILY IVP Last administered on 08/13/24at 08:17; Start 08/12/24 at 09:00; Stop 09/11/24 at 08:59 Ceftriaxone Sodium 1 gm BID IVPB Last administered on 08/12/24at 08:06; Start 08/12/24 at 09:00; Stop 08/12/24 at 13:44; Status DC Gadoterate Meglumine 10 mmol STK-MED ONCE IV; Start 08/12/24 at 16:08; Stop 08/12/24 at 16:09; Status DC RISSA KENDALL Jr. Aug 13, 2024 10:04
--- NOTE | 2024-08-13 20:05 | PN ---
[facility] PROGRESS NOTE Date of Service: Aug 13, 2024 Time of Service: 20:00 SUBJECTIVE: 08/12 patient seen at bedside, no acute events overnight. She reports improvement in her symptoms, epigastric pain has improved significantly. Upon reviewing the imaging there does not appear to be any evidence of choledocholithiasis causing acute pancreatitis. Common bile duct was of normal size, MRCP was ordered this morning and did not show any evidence of retained stones in the common bile duct. There are stones noted in the gallbladder and there is peripancreatic stranding consistent with acute pancreatitis. Patient's triglycerides are normal, she denies any alcohol use and does not take any medications that would precipitate acute pancreatitis. We will continue with IV fluids, patient already stating she is hungry, we will start a clear liquid diet and advance as tolerated. General surgery recommendations pending, we will follow up. 08/13 seen at bedside, no acute events overnight. She is asymptomatic today, lipase is downtrending, LFTs are trending back to normal. She will be started on a clear liquid diet, discussed case with General surgery they will re- evaluate her later today. REVIEW OF SYSTEMS 12 point review of systems negative unless noted in HPI PHYSICAL EXAM GENERAL APPEARANCE: The patient is awake, alert, and oriented, in no acute cardiopulmonary distress. NEUROLOGICAL: Cranial nerves II-XII grossly intact. Motor is 5/5 in bilateral upper and lower extremities proximal to distal. No sensory deficits. HEENT: Face is symmetric. Pupils are equal and reactive. Extraocular movements are intact. NECK: Supple. No JVD. No thyromegaly. No submental, submandibular, pre- /postauricular, occipital or supraclavicular lymphadenopathy. CHEST: Normal chest expansion. No Telemetry. LUNGS: Absence of any rales, rhonchi or any wheezing. CARDIOVASCULAR: Regular. S1 and S2 normal. No appreciable rubs, murmurs or gallops. ABDOMEN: Soft, nontender, and nondistended. There is no rebound, voluntary guarding, or rigidity. : Deferred. No Parker. EXTREMITIES: Non-edematous and not cyanotic. No clubbing. Good capillary refill. SKIN: No skin breakdown. Vital Signs (last 8hr) Date Time Temp Pulse Resp B/P (MAP) Pulse Ox O2 Delivery O2 Flow Rate FiO2 08/13/24 16:07 98.1 71 20 142/58 100 Room Air LABS: Laboratory: Test 08/13/24 05:05 08/12/24 05:21 08/11/24 20:24 Range/Units Lipase 462 H 16-77 U/L White Blood Count 11.7 H 4.8-10.8 K/uL Red Blood Count 4.06 4.00-5.50 MIL/uL Hemoglobin 11.5 L 12.0-16.0 g/dL Hematocrit 35.5 L 36-48 % Mean Corpuscular Volume 87.4 79-99 fL Mean Corpuscular Hemoglobin 28.3 27.0-33.0 pg Mean Corpuscular Hemoglobin Concent 32.4 32.0-36.0 g/dL Red Cell Distribution Width 13.7 11.0-15.5 % Platelet Count 283 130-400 K/uL Mean Platelet Volume 10.3 7.5-10.5 fL Immature Granulocyte % (Auto) 0.4 0-1 % Neutrophils (%) (Auto) 75.6 40.0-77.0 % Lymphocytes (%) (Auto) 17.3 L 21.0-51.0 % Monocytes (%) (Auto) 5.7 3.0-13.0 % Eosinophils (%) (Auto) 0.8 0.0-8.0 % Basophils (%) (Auto) 0.2 0.0-5.0 % Neutrophils # (Auto) 8.8 H 1.8-7.7 K/uL Lymphocytes # (Auto) 2.0 1.0-4.8 K/uL Monocytes # (Auto) 0.7 0.1-1.0 K/uL Eosinophils # (Auto) 0.09 0.00-0.70 K/uL Basophils # (Auto) 0.02 0.00-0.20 K/uL Absolute Immature Granulocyte (auto 0.05 0-1 K/uL Nucleated Red Blood Cells 0.0 0.0-0.19 % Erythrocyte Sedimentation Rate 25 H 0-20 MM/HR Sodium Level 137 136-145 mmol/L Potassium Level 3.8 3.5-5.1 mmol/L Chloride Level 105 101-111 mmol/L Carbon Dioxide Level 25 21-32 mmol/L Blood Urea Nitrogen 12 7-18 mg/dL Creatinine 0.6 0.5-1.0 mg/dL Glomerular Filtration Rate Calc 126 >90 mL/min Random Glucose 99 70-105 mg/dL Hemoglobin A1c 5.4 4.0-6.0 % Estimated Average Glucose (eAG) 108 70-126 mg/dL Total Calcium 8.1 L 8.5-10.1 mg/dL Magnesium Level 1.90 1.80-2.40 mg/dL Total Bilirubin 0.7 # 0.2-1.0 mg/dL Direct Bilirubin 0.3 # 0.0-0.3 mg/dL Aspartate Amino Transf (AST/SGOT) 201 H 10-37 U/L Alanine Aminotransferase (ALT/SGPT) 282 H 12-78 U/L Alkaline Phosphatase 300 H 50-136 U/L Total Protein 6.6 6.0-8.3 g/dL Albumin 3.0 #L 3.5-5.0 g/dL Triglycerides Level 46 30-200 mg/dL Cholesterol Level 116 <200 mg/dL LDL Cholesterol 51 0-99 mg/dL HDL Cholesterol 58 35-85 mg/dL Amylase Level 1682 *H 25-115 U/L White Cell Morphology Comment See comments Human Chorionic Gonadotropin, Quant 0 0-5 mIU/mL Current Medications Medications (Trade) Dose Ordered Sig/Joshua Route PRN Reason Start Time Stop Time Status Last Admin Dose Admin Ceftriaxone Sodium 1 gm/ Sodium Chloride 50 ml @ 100 mls/hr BID IV 08/12/24 09:00 08/11/24 23:12 DC Ceftriaxone Sodium (ROCEphine 1G INJ) 1 gm BID IVPB 08/12/24 09:00 08/12/24 13:44 DC 08/12/24 08:06 1 GM Ceftriaxone Sodium (ROCEphine 1G INJ) 1 gm ONCE STAT IVPB 08/11/24 20:25 08/11/24 20:28 DC 08/11/24 21:37 1 GM Magnesium Sulfate 50 ml @ 0 mls/hr PROTOCOL PRN IV OTHER [SEE ORDER COMMENTS] 08/11/24 23:00 09/10/24 22:59 08/12/24 11:08 25 MLS/HR Morphine Sulfate (morPHINE 2MG SYG) 2 mg Q4H PRN IVP SEVERE PAIN (7-10) 08/11/24 23:00 08/18/24 22:59 Ondansetron HCl (zoFRAN 4MG INJ) 4 mg Q6H PRN IV NAUSEA/VOMITING 4/23/25 23:00 09/10/24 22:59 Pantoprazole Sodium (PROTonix 40MG INJ) 40 mg DAILY IVP 08/12/24 09:00 09/11/24 08:59 08/13/24 08:17 40 MG Potassium Chloride 100 ml @ 50 mls/hr AD PRN IV POTASSIUM PROTOCOL 08/11/24 23:00 09/10/24 22:59 08/12/24 17:22 50 MLS/HR Sodium Chloride 1,000 ml @ 175 mls/hr Q5H43M IV 08/11/24 23:00 09/10/24 22:59 08/12/24 17:22 175 MLS/HR Sodium Chloride 1,000 ml @ 1,000 mls/hr Q1H STAT IV 08/11/24 19:33 08/11/24 20:32 DC 08/11/24 21:37 1,000 MLS/HR DIAGNOSTICS / RADIOLOGY: [ ] ASSESSMENT: Acute pancreatitis POA Transaminitis POA Acute urinary tract infection POA Acute leukocytosis POA Biliary colic POA Cholelithiasis POA Morbid obesity POA PLAN: Continue med/surg Continue clear liquid diet, advance as tolerated Continue NS to 175 cc/hr Continue pain management Chest xray tomorrow am Discontinue antibiotics, not indicated at this time Continue Protonix 40 mg IV daily for GI prophylaxis General surgery consulted, appreciate recommendations Further orders to follow depending on above results Case discussed with attending physician and came up with above treatment and plan of care. ABRAM SAUCEDO MD Aug 13, 2024 20:05
[2024-08-13] MEDS ORDERED: PoTASSium chl 10% ELIXIR 20MEQ 20 MEQ/15 ML UDCUP PO PRN (23:00)
[2024-08-13] MEDS ORDERED: PoTASSium chloRIDE 20MEQ/100ML 100 ML IV PRN (23:00)
[2024-08-13] MEDS: PoTASSium chloRIDE 20MEQ ER 20 MEQ ERTAB PO PRN (23:29)
[2024-08-14] VITALS: BP 128/81; PULSE 95; RESP 17; TEMP 98.1
[2024-08-14 04:01] LABS: BASOPHILS # (AUTO) 0.03 K/uL (0.00-0.20); BASOPHILS % (AUTO) 0.3 % (0.0-5.0); HEMATOCRIT 34.6 % (36-48); IMMATURE GRANULOCYTE ABSOLUTE 0.06 K/uL (0-1); LYMPHOCYTES # (AUTO) 2.3 K/uL (1.0-4.8); LYMPHOCYTES % (AUTO) 23.1 % (21.0-51.0); MEAN CORPUSCULAR HEMOGLOBIN 28.4 pg (27.0-33.0); MEAN CORPUSCULAR HGB CONC 32.7 g/dL (32.0-36.0); MEAN CORPUSCULAR VOLUME 86.9 fL (79-99); MONOCYTES # (AUTO) 0.7 K/uL (0.1-1.0); MONOCYTES % (AUTO) 7.3 % (3.0-13.0); NEUTROPHILS # (AUTO) 6.3 K/uL (1.8-7.7); NEUTROPHILS % (AUTO) 63.7 % (40.0-77.0); PLATELET COUNT (AUTO) 275 K/uL (130-400); RED BLOOD CELL COUNT(AUTO) 3.98 MIL/uL (4.00-5.50); RED CELL DISTRIBUTION WIDTH 13.4 % (11.0-15.5); WHITE BLOOD COUNT (AUTO) 9.9 K/uL (4.8-10.8)
[2024-08-14 04:10] VITALS: BP 126/58; PULSE 82; RESP 17; TEMP 98.2
[2024-08-14 04:14] LABS: BILIRUBIN,TOTAL 0.7 mg/dL (0.2-1.0); CREATININE 0.5 mg/dL (0.5-1.0); MAGNESIUM 1.9 mg/dL (1.80-2.40); POTASSIUM 3.6 mmol/L (3.5-5.1); TOTAL PROTEIN, SERUM 6.9 g/dL (6.0-8.3)
--- NOTE | 2024-08-14 06:44 | NUR ---
nurse note report received by tristian starr. assumed patient care at 23:00. patient alert and oriented times 4. at bedside. plan of care discussed with them and they verbalized understanding. patient is ambulatory on her own to the restroom. patient has no pain tonight. she slept about 7 hours tonight. call light within reach, bed alarm on, 2 side rails up. will continue to monitor patient.
[2024-08-14 08:00] VITALS: BP 130/80; PULSE 77; RESP 16; TEMP 98.4; O2SAT 96
[2024-08-14 11:42] VITALS: BP 128/76; PULSE 77; RESP 16; TEMP 98.4
--- NOTE | 2024-08-14 13:59 | NUR ---
DISCHARGED PATIENT PROVIDED DISCHARGE EDUCATION INCLUDING FOLLOW UP APPOINTMENT INFORMATION ALL QUESTIONS ANSWERED PT VERBALIZED UNDERSTANDING IV REMOVED PT DISCHARGED WITH SPOUSE
--- NOTE | 2024-08-14 19:40 | DS ---
Discharge Summary Hospital Course Summary: 28-year-old female with no past medical and surgical history who comes into the ED for complaints of epigastric pain which radiates to her back which started around 1:00 p.m. today associated with nausea and vomiting x5 episodes. Patient states he had meat and potatoes around 10:30 a.m. today.Patient described pain as sharp so she decided to come to the Ed for evaluation. Patient states her last bowel movement is around 8:00 a.m. a.m. today eight was normal. Blood work showed elevated LFT and lipase. Ultrasound showed normal CBD and gallstones in the gallbladder. No evidence of choledocholithiasis was noted. She was admitted, made NPO, started on pain medications and IV fluids. General Surgery was consulted for further recommendations. MRCP was ordered and no filling defects were noted in the CBD to suggest mass or stone. She denied alcohol use and does not take any medications that may precipitate pancreatitis. By hospital day 2 patient was started on clear liquid diet which she tolerated well. On hospital day 3 discussed case with general surgery and the medical team agreed she was a good candidate for discharge back home to follow up with general surgery to be evaluated for elective cholecystectomy. Explained plan to patient and she was in agreement. . [employer] Layout Person(s): General Surgery Procedure(s): Exam Type: CHEST 1VW Clinical Information: Evaluate for infiltrates Comparison: None Findings: The lungs are clear of infiltrates. The heart is normal in size. The bony and soft tissue structures of the chest are unremarkable. Impression: Clear lungs. MRCP(ABDWWO)CHOLANGIOPANCREATO HISTORY: Gallstone pancreatitis COMPARISON: None TECHNIQUE: MRI of the abdomen was performed utilizing multiple pulse sequences in axial, coronal and sagittal planes. Patient was given 20 cc of Clariscan through intravenous route. MRCP was obtained. FINDINGS: No pleural effusion is seen bilaterally. Liver measures 14 cm. Gallstones are seen in the gallbladder. Common duct is not dilated measuring 3 mm. Pancreas is prominent with pancreatic fat stranding suspicious for acute pancreatitis in the proper clinical setting. Lipase correlation may be helpful. No mass lesion or abnormal enhancement is seen. Both kidneys are seen without hydronephrosis. IMPRESSION: 1. Gallstones without ductal dilatation. Prominent pancreas with peripancreatic fat stranding suspicious for acute pancreatitis in the proper clinical setting. Common duct is not dilated. No MR evidence of common duct stone is seen. US ABDOMINAL RUQ\E\LTD HISTORY: No additional history given. COMPARISON: None TECHNIQUE: Right upper quadrant abdominal ultrasound study was performed. FINDINGS: Abdominal aorta and inferior vena cava are unremarkable. The visualized portion of the pancreas is within normal limits. Liver measures 14.2 cm. Liver is echogenic consistent with liver parenchymal disease. Gallstones are seen in the gallbladder Common duct measures 5 mm. No evidence of gallbladder wall thickening is seen. Right kidney measures 9.7 x 4.1 x 5 cm. No hydronephrosis is seen of the right kidney. IMPRESSION: 1. Gallstones in the gallbladder. No ductal dilatation is seen. 2. No hydronephrosis is seen. Assessment/Plan: Acute pancreatitis, resolved POA Transaminitis, resolved POA Acute urinary tract infection, ruled out POA Acute leukocytosis, resolved POA Biliary colic, ruled out POA Cholelithiasis POA Morbid obesity POA Discharge Instructions: Follow up with PCP in 3-7 days Follow up with general surgery, Dr. Ramirez, in 2-3 weeks to discuss possible elective cholecystectomy Home Medications: No Active Prescriptions or Reported Meds Time spent arranging discharge: 31-60 minutes ABRAM SAUCEDO MD Aug 14, 2024 19:40
== END 2024-08-14 13:55 | disposition home or self-care (01) | DRG 439 ==
LOC: EDH 19:26 → EDHIP 19:27 → 4AH 08-12 00:30
PROVIDERS: ADMIT Internal Medicine Sleep Medicine; ATTEND Internal Medicine Sleep Medicine
DX: K85.10 Biliary acute pancreatitis without necrosis or infection (principal); N39.0 Urinary tract infection, site not specified; Z68.41 Body mass index [BMI] 40.0-44.9, adult; R74.01 Elevation of levels of liver transaminase levels; K80.20 Calculus of gallbladder without cholecystitis without obstruction; E66.01 Morbid (severe) obesity due to excess calories; K80.50 Calculus of bile duct without cholangitis or cholecystitis without obstruction
CPT/HCPCS: 36415; 71045; 74183; 76705; 80048; 80053; 80061; 80076; 81001; 82150; 83036; 83690; 83735; 84100; 84478; 84702; 85025; 85651; 87086; G0378; J0696; J2270; J2405; J2470; J3475; J3480; J3490; J7030; A9575